=== PATIENT | male | born 1945 | race Caucasian/White ===

== ENCOUNTER 2021-01-18 09:06 | Emergency (ER) | payer SELFPAY ==
[~2021-01-18] VITALS: Ht 154.9 cm; Wt 59.9 kg
--- NOTE | 2021-01-18 09:06 | NUR ---
PT W/C ASSISTED TO ER BED 7. FAMILY AT BEDSIDE
[2021-01-18 09:10] VITALS: BP 114/70
--- NOTE | 2021-01-18 09:16 | NUR ---
Dr. Cherry examining patient.
--- NOTE | 2021-01-18 09:30 | NUR ---
75 YEAR OLD MALE COMPLAINS OF LEFT HAND PAIN X YESTERDAY. PT STATES THAT HE HIT HAND ON WALL WHEN FALLING. PT DENIES HITTING HEAD. PT PRESENTS WITH SWOLLEN FOREARM ON LEFT HAND. FULL SENSATION INTACT, LIMITED ROM. CAP REFILL < 3 SEC, RADIAL PULSE +2 BILATERALLY. PT AOX4, BREATHING EVEN AND UNLABORED, SKIN WARM AND DRY. BED IN LOWEST POSITION, LOCKED, BED RAIL UPX1. SON AT BEDSIDE PMH - DENIES ALLERGIES - NKA
--- NOTE | 2021-01-18 09:32 | NUR ---
X-Ray at bedside.
[2021-01-18] MEDS: KETOROLAC 30 MG/ML VIAL IM ONE (09:44)
[2021-01-18] MEDS: ACETAMINOPHEN EXTRA STRENGTH 500 MG TAB PO ONE (09:44)
[2021-01-18] MEDS ORDERED: ACET-8386 PO (09:57)
[2021-01-18] MEDS ORDERED: NAPR-1704 PO (09:57)
--- NOTE | 2021-01-18 10:40 | NUR ---
SUGAR SPLINT APPLIED WITH MIGEL WRAP BANDAGE TO LEFT ARM. SLING APPLIED TO LEFT ARM. RADIAL PULSE +2, CAP REFILL <3 SEC.
[2021-01-18 10:45] VITALS: BP 110/78
--- NOTE | 2021-01-18 10:45 | NUR ---
Patient discharged with v/s stable. Written and verbal after care instructions about colles fracture, wrist fracture treated with immobilization given and explained. Patient alert, oriented and verbalized understanding of instructions. Ambulatory with steady gait. All questions addressed prior to discharge. ID band removed. Patient advised to follow up with PMD. Rx of naprosyn, hydrocodone-acetaminophen given. Patient educated on indication of medication including possible reaction and side effects. Opportunity to ask questions provided and answered.
--- NOTE | 2021-01-18 10:47 | NUR ---
Tj monte in EDM - 01/18/21 at 1048 by MEDYaelJ SUGAR SPLINT APPLIED WITH MIGEL WRAP BANDAGE TO LEFT ARM. SLING APPLIED TO LEFT ARM. RADIAL PULSE +2, CAP REFILL <3 SEC.
== END 2021-01-18 10:45 | disposition home or self-care (01) ==
LOC: MED 09:06
DX: S52.502A Unspecified fracture of the lower end of left radius, initial encounter for closed fracture (principal); S60.212A Contusion of left wrist, initial encounter; Z88.5 Allergy status to narcotic agent; Z88.6 Allergy status to analgesic agent; W01.198A Fall on same level from slipping, tripping and stumbling with subsequent striking against other object, initial encounter; Y92.89 Other specified places as the place of occurrence of the external cause; Y93.89 Activity, other specified; Y99.8 Other external cause status
CPT/HCPCS: 29125; 73110; 96372; 99283; J1885